=== PATIENT | male | born 1950 | race Caucasian/White ===

== ENCOUNTER 2019-04-01 11:56 | Emergency (ER) | payer MEDICARE ==
[~2019-04-01] VITALS: Ht 198.1 cm; Wt 104.3 kg
[2019-04-01] MEDS ORDERED: LIPITOR20 MG PO (12:24)
[2019-04-01] MEDS ORDERED: ATENOLOL25 MG PO (12:24)
[2019-04-01] MEDS ORDERED: HYZAAR 100-251 EACH PO (12:24)
[2019-04-01] MEDS ORDERED: CYCLOBENZAPRINE10 MG PO (13:46)
[2019-04-01] MEDS ORDERED: METHYLPREDNISOLO4 M1 PO (13:46)
[2019-04-01] MEDS ORDERED: NORCO 7.5-3251 EACH PO (14:08)
== END 2019-04-01 14:18 | disposition home or self-care (01) ==
LOC: ED 11:56
DX: M54.42 Lumbago with sciatica, left side (principal); I10 Essential (primary) hypertension; Z79.899 Other long term (current) drug therapy
CPT/HCPCS: 99283; A9270; J7512